=== PATIENT | female | born 1975 | race Caucasian/White ===

== ENCOUNTER 2016-10-04 09:37 | Emergency (ER) | payer BC, OTHER ==
[~2016-10-04] VITALS: Ht 165.1 cm; Wt 95.0 kg
[~2016-10-04 09:37] MED LIST: BENZ100 PO; DOXY100T PO; FLON0.053; MMW SSP
[2016-10-04 09:40] VITALS: BP 166/97; PULSE 75; RESP 16; TEMP 98.2; O2SAT 96
[2016-10-04] MEDS ORDERED: IBUPROFEN 600 MG TAB PO ONE (10:15)
--- NOTE | 2016-10-04 10:18 | PD ---
HPI Chief Complaint: Musculoskeletal Complaint Time Seen by Provider: 10:09 Travel History International Travel<30 days: No Contact w/Intl Traveler<30days: No Traveled to known affect area: No History of Present Illness HPI Patient is a 41-year-old female who presents to emergency room with complaints of right-sided wrist pain. Patient reports that she noticed this pain starting Thursday morning, reports that she is right hand dominant at baseline. Patient reports that she is unsure if she had any trauma to her hand/wrist as she usually gets up in the middle of the night. Reports "I may have banged my hand. " Reports that she has had increased pain with range of motion to her wrist, reports that she noticed increased swelling to her fingers as well. No redness or erythema noticed, no fevers or chills. PFSH Past Medical History Asthma: Yes Diabetes: Yes ("DIET CONTROLLED") Diminished Hearing: No Hypertension: Yes (QUIT MEDS 6 MOS AGO) Reproductive: Yes (MISCARRIAGES/ENDOMETRIOSIS/UTERINE ) ?: Not LMP: JAMIR : 4 Miscarriage: 3 Ectopic : Yes Past Surgical History Abdominal Surgery: Yes Appendectomy: Yes Section: Yes Cholecystectomy: Yes Gynecologic Surgery: Yes (SEPTUM FROM UTERUS REMOVED 03/2008 ENDOMETRIOSIS X4 LAST SURGERY 2005) Other Surgery: Yes (LUMPECTOMY 1997) Social History Alcohol Use: Yes ("VERY RARELY") Tobacco Use: No (QUIT ) Substance Use: No Allergies-Medications (Allergen,Severity, Reaction): Coded Allergies: Compazine (Verified Allergy, Severe, VISION LOSS, 10/04/16) Flagyl (Verified Allergy, Severe, MEMORY LOSS, 10/04/16) Levaquin (Verified Allergy, Severe, SWELLING, 10/04/16) Penicillin (Verified Allergy, Severe, SWELLING, 10/04/16) Reported Meds & Prescriptions Reported Meds & Active Scripts Active Ibuprofen 600 Mg Tab 600 Mg PO Q6H PRN Reported Metformin (Metformin HCl) 500 Mg Tab 500 Mg PO BIDPC With meals Hydrochlorothiazide 25 Mg Tab 25 Mg PO DAILY Flonase Nasal [place] (Fluticasone Nasal [place]) 50 Mcg/Act [place] 100 Mcg EACH NARE BID Claritin (Loratadine) 5 Mg Chew 5 Mg CHEW DAILY Lisinopril 20 Mg Tab 20 Mg PO DAILY Zofran (Ondansetron HCl) 4 Mg Tab 4 Mg PO Q6HR PRN Ranitidine (Ranitidine HCl) 150 Mg Tab 150 Mg PO DAILY Crestor (Rosuvastatin Calcium) 10 Mg Tab 10 Mg PO DAILY Review of Systems General / Constitutional: No: Fever Eyes: No: Visual changes HENT: No: Headaches Cardiovascular: No: Chest Pain or Discomfort Respiratory: No: Shortness of Breath Gastrointestinal: No: Abdominal Pain Genitourinary: No: Dysuria Musculoskeletal: Positive: Limited ROM, Pain (right wrist/hand pain) Skin: No Rash Neurologic: No: Weakness Psychiatric: No: Depression Endocrine: No: Polydipsia Hematologic/Lymphatic: No: Easy Bruising Physical Exam Narrative GENERAL: Well-nourished, well-developed patient. SKIN: Warm and dry. HEAD: Normocephalic. EYES: No scleral icterus. No injection or drainage. NECK: Supple, trachea midline. No JVD or lymphadenopathy. CARDIOVASCULAR: Regular rate and rhythm without murmurs, gallops, or rubs. RESPIRATORY: Breath sounds equal bilaterally. No accessory muscle use. GASTROINTESTINAL: Abdomen soft, non-tender, nondistended. MUSCULOSKELETAL: No cyanosis, or edema. Patient with pain with range of motion to right wrist, no obvious deformities, no cellulitis or erythema or edema. Pulses intact, neurovascularly intact, left upper extremity: normal exam BACK: Nontender without obvious deformity. No CVA tenderness. Data Data Last Documented VS Vital Signs Date Time Temp Pulse Resp B/P Pulse Ox O2 Delivery O2 Flow Rate FiO2 10/04/16 09:40 98.2 75 16 166/97 96 Orders Wrist, Complete ([id number]) (10/04/16 ) Hand, Complete ([id number]) (10/04/16 ) Ibuprofen (Motrin) (10/04/16 10:15) Ice/Cold Pack (10/04/16 10:12) Splint Or Brace Apply/Monitor (10/04/16 10:46) MDM Medical Decision Making Medical Screen Exam Complete: Yes Emergency Medical Condition: Yes Interpretation(s) Vital Signs Date Time Temp Pulse Resp B/P Pulse Ox O2 Delivery O2 Flow Rate FiO2 10/04/16 09:40 98.2 75 16 166/97 96 Differential Diagnosis wrist sprain/fracture, carpel tunnel syndrome Narrative Course Patient is a 41-year-old female who presents to emergency room with complaints of right-sided wrist pain. Reports onset on Thursday morning after she woke up from sleep, denies any obvious injuries or trauma to her wrist. Patient with no redness or erythema, patient with normal range of motion to wrist, she does have pain to her wrist with range of motion. X-rays of the wrist ordered to evaluate for possible fracture X-ray of the right wrist with no acute disease, x-ray of the right hand with no acute disease, patient follow-up with orthopedic surgery to return to emergency room as needed. Copies of patient's studies were given to her. Signs and symptoms of when to return to emergency room was reviewed with patient. Diagnosis Primary Impression: Wrist sprain Qualified Code: S63.501A - Wrist sprain, right, initial encounter Referrals: Gordo Lerma MD Patient Instructions: General Instructions Additional Instructions: Please follow-up with your primary care doctor in 2-3 days Please follow-up with orthopedic surgeon Please bring your x-ray reports to doctor's office for follow-up Return to ER if symptoms progress or worsen Med/Other Pt SpecificInfo: Prescription(s) given Scripts Ibuprofen 600 Mg [id number] Mg PO Q6H PRN (Pain/Inflammation) #40 TAB Ref 0 Prov:Payton Melissa DO 10/04/16 Disposition: 01 DISCHARGE HOME Condition: Stable Payton Melissa DO Oct 04, 2016 10:18
[2016-10-04] MEDS ORDERED: LISI-515 PO (10:24)
[2016-10-04] MEDS ORDERED: ROSU10 PO (10:24)
[2016-10-04] MEDS ORDERED: FLUT1SPR5 EACH NARE (10:24)
[2016-10-04] MEDS ORDERED: LORA1CHW CHEW (10:24)
[2016-10-04] MEDS ORDERED: ZOFR4TAB PO (10:24)
[2016-10-04] MEDS ORDERED: HYDR25TA5 PO (10:24)
[2016-10-04] MEDS ORDERED: METF500T PO (10:24)
[2016-10-04] MEDS ORDERED: RANI150T PO (10:24)
[2016-10-04] MEDS ORDERED: IBUP-232 PO (10:45)
--- NOTE | 2016-10-04 10:59 | RADHPO ---
EXAM DATE/TIME: 10/04/2016 10:21 [facility] COMPARISON: No previous studies available for comparison. INDICATIONS : Pain, no known injury MEDICAL HISTORY : Right wrist fracture SURGICAL HISTORY : Ligament repair right wrist ENCOUNTER: Initial ACUITY: 4 - 6 days PAIN SCORE: 4/10 LOCATION: Right hand FINDINGS: Three view examination of the right hand demonstrates no soft tissue swelling, dislocation, or fractu re. The carpal bones appear intact. The interphalangeal and metacarpophalangeal joints are intact. Bony mineralization is normal. CONCLUSION: Unremarkable examination of the right hand. Ricci Emmanuel MD on October 04, 2016 at 10:57 Board Certified Radiologist. This report was verified electronically.
--- NOTE | 2016-10-04 11:01 | RADHPO ---
EXAM DATE/TIME: 10/04/2016 10:25 [facility] COMPARISON: No previous studies available for comparison. INDICATIONS : Right wrist pain, no known injury MEDICAL HISTORY : Right wrist fracture SURGICAL HISTORY : Ligament repair right wrist ENCOUNTER: Initial ACUITY: 4 - 6 days PAIN SCORE: 4/10 LOCATION: Right wrist FINDINGS: Three view examination of the right wrist demonstrates no soft tissue swelling, dislocation, or fract ure. The carpal bones are in normal alignment. The joint spaces are maintained. Bony mineralizatio n is normal. CONCLUSION: No acute disease. Ricci Emmanuel MD on October 04, 2016 at 10:59 Board Certified Radiologist. This report was verified electronically.
== END 2016-10-04 11:36 | disposition home or self-care (01) ==
LOC: PHED 09:37
DX: S63.501A Unspecified sprain of right wrist, initial encounter (principal); X58.XXXA Exposure to other specified factors, initial encounter
CPT/HCPCS: 73110; 73130; 99283; L3908

== ENCOUNTER 2017-03-04 16:52 | Emergency (ER) | payer BC ==
[~2017-03-04] VITALS: Ht 165.1 cm; Wt 96.0 kg
[~2017-03-04 16:52] MED LIST changes: -BENZ100 PO; -DOXY100T PO; -FLON0.053; +FLUT1SPR5 EACH NARE; +HYDR25TA5 PO; +IBUP-232 PO; +LISI-515 PO; +LORA1CHW CHEW; +METF500T PO; -MMW SSP; +RANI150T PO; +ROSU10 PO; +ZOFR4TAB PO
[2017-03-04 17:00] VITALS: BP 186/81; PULSE 76; RESP 20; TEMP 98.1; O2SAT 95
[2017-03-04] MEDS ORDERED: OMEP20TA PO (17:27)
[2017-03-04] MEDS ORDERED: METO100T PO (17:27)
--- NOTE | 2017-03-04 18:05 | PD ---
HPI Chief Complaint: Laceration/Skin Injury Time Seen by Provider: 17:38 Travel History International Travel<30 days: No Contact w/Intl Traveler<30days: No Traveled to known affect area: No History of Present Illness HPI 41-year-old female presents emergency department for evaluation of left thumb nail injury. Patient reports her fingernail was forcefully extended causing the nail to lift away from the nailbed. She reports pain at the site. There is mild bleeding. She reports normal sensation and full range of motion of the thumb. Tetanus immunization is unknown. PFS Past Medical History Asthma: Yes High Cholesterol: Yes Diabetes: Yes Patient Takes Glucophage: No Diminished Hearing: No Hypertension: Yes Reproductive: Yes (MISCARRIAGES/ENDOMETRIOSIS/UTERINE ) Tetanus Vaccination: Unknown Influenza Vaccination: Yes ?: Not LMP: MENOPAUSE : 4 Miscarriage: 3 Ectopic : Yes Past Surgical History Abdominal Surgery: Yes Appendectomy: Yes Section: Yes Cholecystectomy: Yes Gynecologic Surgery: Yes (SEPTUM FROM UTERUS REMOVED 03/2008 ENDOMETRIOSIS X4 LAST SURGERY 2005) Other Surgery: Yes (LUMPECTOMY 1997) Social History Alcohol Use: Yes ("VERY RARELY") Tobacco Use: No (QUIT ) Substance Use: No Allergies-Medications (Allergen,Severity, Reaction): Coded Allergies: Compazine (Verified Allergy, Severe, VISION LOSS, 10/04/16) Flagyl (Verified Allergy, Severe, MEMORY LOSS, 10/04/16) Levaquin (Verified Allergy, Severe, SWELLING, 10/04/16) Penicillin (Verified Allergy, Severe, SWELLING, 10/04/16) Reported Meds & Prescriptions Reported Meds & Active Scripts Active Reported Omeprazole 20 Mg Tab 20 Mg PO DAILY Metoprolol Tartrate 100 Mg Tab 100 Mg PO BID Review of Systems Except as stated in HPI: all other systems reviewed are Neg General / Constitutional: No: Fever Eyes: No: Visual changes HENT: No: Headaches Cardiovascular: No: Chest Pain or Discomfort Respiratory: No: Shortness of Breath Gastrointestinal: No: Abdominal Pain Genitourinary: No: Dysuria Physical Exam Narrative GENERAL: Well-nourished, well-developed patient. SKIN: Focused skin assessment warm/dry. HEAD: Normocephalic. EYES: No scleral icterus. No injection or drainage. NECK: Supple, trachea midline. No JVD or lymphadenopathy. CARDIOVASCULAR: Regular rate and rhythm without murmurs, gallops, or rubs. RESPIRATORY: Breath sounds equal bilaterally. No accessory muscle use. GASTROINTESTINAL: Abdomen soft, non-tender, nondistended. MUSCULOSKELETAL: No cyanosis, or edema. Left hand: Subtle thumb nail avulsion at the distal aspect. The nail itself is still well adhered to the bed. Data Data Last Documented VS Vital Signs Date Time Temp Pulse Resp B/P Pulse Ox O2 Delivery O2 Flow Rate FiO2 03/04/17 17:00 98.1 76 20 186/81 95 MDM Medical Decision Making Medical Screen Exam Complete: Yes Emergency Medical Condition: Yes Differential Diagnosis Nail avulsion, contusion, finger laceration Narrative Course 41-year-old female with chief complaint of left thumb pain. Patient reports that here left thumb nail was forcibly extended causing it to slightly lift up. On physical exam she has a subtle fingernail avulsion at the distal aspect. The nail is still well adhered. The area was soaked and dressed with a sterile dressing and thumb splint applied. Diagnosis Primary Impression: Nail avulsion Qualified Code: S61.309A - Avulsion of nail plate, initial encounter Referrals: Primary Care Physician Additional Instructions: Watch the area daily with soap and water. With a thumb splint as directed. Follow-up with her primary care doctor. Return to the emergency department if he developed new or worsening symptoms. Scripts Sulfamethoxazole-Trimethoprim (Bactrim DS)800-160 Mg Tab1 Tab PO BID #14 TAB Prov:Leta Polk 03/04/17 Disposition: 01 DISCHARGE HOME Condition: Stable Leta Polk Mar 04, 2017 18:05
[2017-03-04] MEDS ORDERED: BACT800T5 PO (18:15)
[2017-03-04] MEDS ORDERED: TETANUS/DIPHTHERIA TOXOID ADULT 0.5 ML VIAL IM ONE (18:45)
== END 2017-03-04 19:23 | disposition home or self-care (01) ==
LOC: PHED 16:52 → PHEFT 19:23
DX: S61.309A Unspecified open wound of unspecified finger with damage to nail, initial encounter (principal); E11.9 Type 2 diabetes mellitus without complications; I10 Essential (primary) hypertension; E78.00 Pure hypercholesterolemia, unspecified; Z23 Encounter for immunization; Z87.09 Personal history of other diseases of the respiratory system; X58.XXXA Exposure to other specified factors, initial encounter
CPT/HCPCS: 90471; 90714

== ENCOUNTER 2017-06-10 19:24 | Observation (INO) | payer BC ==
[~2017-06-10] VITALS: Ht 165.1 cm; Wt 98.0 kg
[~2017-06-10 19:24] MED LIST changes: +BACT800T5 PO; -FLUT1SPR5 EACH NARE; -HYDR25TA5 PO; -IBUP-232 PO; -LISI-515 PO; -LORA1CHW CHEW; -METF500T PO; +METO100T PO; +OMEP20TA93 PO; -RANI150T PO; -ROSU10 PO; -ZOFR4TAB PO
[2017-06-10 19:27] VITALS: BP 145/92; PULSE 86; RESP 20; TEMP 98.8; O2SAT 98
[2017-06-10] MEDS ORDERED: METF1000 PO (19:47)
[2017-06-10] MEDS ORDERED: EDAR80TA PO (19:47)
[2017-06-10] MEDS ORDERED: LORA1CHW2 CHEW (19:47)
[2017-06-10] MEDS ORDERED: FLUT1SPR5 EACH NARE (19:47)
[2017-06-10] MEDS ORDERED: CHOL1CAP2 PO (19:47)
[2017-06-10] MEDS ORDERED: ROSU20 PO (19:47)
[2017-06-10] MEDS ORDERED: DULA10IN SQ (19:47)
[2017-06-10] MEDS ORDERED: CARV12.52 PO (19:47)
--- NOTE | 2017-06-10 20:20 | PD ---
HPI Chief Complaint: Chest Pain Time Seen by Provider: 19:40 Travel History International Travel<30 days: No Contact w/Intl Traveler<30days: No Traveled to known affect area: No History of Present Illness HPI Patient is a 41-year-old female with diabetes and hypertension she is moderately obese today while at work sitting at her desk she developed substernal chest pain that radiated up to her left jaw lasting about 20 minutes. She did not take any aspirin she did not take any Tums C took nothing to relieve the symptoms. Pain lasted until she arrived in the ER. In the ER she is mostly pain-free. She has not seen another doctor for this illness. Past history again is diabetes hypertension she has history of GERD on omeprazole chief complaint is substernal chest pain radiating to the left jaw. Denies ever having a stress test. 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 [facility] Past Medical History Asthma: Yes Cardiovascular Problems: Yes (HTN) High Cholesterol: Yes Diabetes: Yes Patient Takes Glucophage: No Diminished Hearing: No Hypertension: Yes Medical other: Yes (METABOLIC SYNDROME) Reproductive: Yes (MISCARRIAGES/ENDOMETRIOSIS/UTERINE ) Tetanus Vaccination: < 5 Years Influenza Vaccination: No ?: Not LMP: irreg : 4 Miscarriage: 3 Ectopic : Yes Past Surgical History Abdominal Surgery: Yes Appendectomy: Yes Section: Yes Cholecystectomy: Yes Gynecologic Surgery: Yes (SEPTUM FROM UTERUS REMOVED 03/2008 ENDOMETRIOSIS X4 LAST SURGERY 2005) Other Surgery: Yes (LUMPECTOMY 1997, LEFT BREAST BIOPSY, CERVICAL BIOPSY) Social History Alcohol Use: No Tobacco Use: No (QUIT ) Substance Use: No Allergies-Medications (Allergen,Severity, Reaction): Coded Allergies: levofloxacin (Unverified Allergy, Severe, SWELLING, 06/10/17) metronidazole (Unverified Allergy, Severe, MEMORY LOSS, 06/10/17) penicillin G (Unverified Allergy, Severe, SWELLING, 06/10/17) prochlorperazine (Unverified Allergy, Severe, VISION LOSS, 06/10/17) Reported Meds & Prescriptions Reported Meds & Active Scripts Active Reported Flonase Nasal [place] (Fluticasone Nasal [place]) 50 Mcg/Act [place] 50 Mcg EACH NARE BID Claritin (Loratadine) 5 Mg Chew 5 Mg CHEW DAILY Trulicity Inj (Dulaglutide Inj) 0.75 Mg/0.5 Ml Pen 0.75 Mg SQ Q7D Edarbi (Azilsartan) 80 Mg Tab 80 Mg PO DAILY Fenofibric Acid Dr (Choline Fenofibrate DR) 135 mg Capdr 135 Mg PO DAILY Carvedilol 12.5 Mg Tab 12.5 Mg PO BID Metformin (Metformin HCl) 1,000 Mg Tab 1,000 Mg PO BIDPC Crestor (Rosuvastatin Calcium) 20 Mg Tab 20 Mg PO DAILY Omeprazole 20 Mg Tab 20 Mg PO DAILY Review of Systems Except as stated in HPI: all other systems reviewed are Neg HENT: No: Headaches Cardiovascular: Positive: Chest Pain or Discomfort (with radiation to the left neck) Gastrointestinal: Positive: Nausea, No: Vomiting, Diarrhea, Abdominal Pain Physical Exam Narrative GENERAL: Nontoxic-appearing in no distress, blood pressure is 160 systolic SKIN: Warm and dry. HEAD: Atraumatic. Normocephalic. EYES: Pupils equal and round. No scleral icterus. No injection or drainage. ENT: No nasal bleeding or discharge. Mucous membranes pink and moist. NECK: Trachea midline. No JVD. CARDIOVASCULAR: Regular rate and rhythm. RESPIRATORY: No accessory muscle use. Clear to auscultation. Breath sounds equal bilaterally. GASTROINTESTINAL: Abdomen soft, non-tender, nondistended. Hepatic and splenic margins not palpable. Palpation of her epigastrium and percussion does not elicit the pain she came in for MUSCULOSKELETAL: Extremities without clubbing, cyanosis, or edema. No obvious deformities. Back no spinous process pain and palpation of her upper left back does not elicit the pain she was describing NEUROLOGICAL: Awake and alert. No obvious cranial nerve deficits. Motor grossly within normal limits. Five out of 5 muscle strength in the arms and legs. Normal speech. PSYCHIATRIC: Appropriate mood and affect; insight and judgment normal. Data Data Last Documented VS Vital Signs Date Time Temp Pulse Resp B/P (MAP) Pulse Ox O2 Delivery O2 Flow Rate FiO2 06/10/17 19:27 98.8 86 20 145/92 (109) 98 Room Air Orders Orders Pantoprazole Inj (Protonix Inj) (06/10/17 20:30) Aspirin Chew (Aspirin Chew) (06/10/17 20:30) Sodium Chlorid 0.9% 500 Ml Inj (Ns 500 M (06/10/17 20:30) Troponin I (06/10/17 21:02) Complete Blood Count With Diff (06/10/17 21:02) Comprehensive Metabolic Panel (06/10/17 21:02) Electrocardiogram (06/10/17 19:42) Admit Order (Ed Use Only) (06/10/17 22:05) Activity Bed Rest With Brp (06/10/17 22:05) Vital Signs (Adult) Q4H (06/10/17 22:05) Cardiac Rhythm .As Directed (06/10/17 22:) Notify Dr: Other .PRN (06/10/17 22:05) Notify DrMadhav Parameters (06/10/17 22:05) Resp Oxygen Nasal Cannula (06/10/17 ) Ckmb (Isoenzyme) Profile (06/10/17 22:05) Ckmb (Isoenzyme) Profile (06/11/17 01:05) Troponin I (06/10/17 22:05) Troponin I (06/11/17 01:05) Electrocardiogram (06/10/17 22:05) Electrocardiogram (06/11/17 01:05) ^ Obtain (06/10/17 22:05) Sodium Chloride 0.9% Flush (Ns Flush) (06/10/17 22:15) Sodium Chloride 0.9% Flush (Ns Flush) (06/10/17 22:15) Customs Director / Telemetry AUSTYN.Q8H (06/10/17 22:05) Labs Laboratory Tests Test 06/10/17 21:05 White Blood Count 6.1 TH/MM3 Red Blood Count 4.36 MIL/MM3 Hemoglobin 12.9 GM/DL Hematocrit 36.7 % Mean Corpuscular Volume 84.1 FL Mean Corpuscular Hemoglobin 29.6 PG Mean Corpuscular Hemoglobin Concent 35.2 % Red Cell Distribution Width 14.4 % Platelet Count 246 TH/MM3 Mean Platelet Volume 8.3 FL Neutrophils (%) (Auto) 47.0 % Lymphocytes (%) (Auto) 41.1 % Monocytes (%) (Auto) 8.6 % Eosinophils (%) (Auto) 2.0 % Basophils (%) (Auto) 1.3 % Neutrophils # (Auto) 2.9 TH/MM3 Lymphocytes # (Auto) 2.5 TH/MM3 Monocytes # (Auto) 0.5 TH/MM3 Eosinophils # (Auto) 0.1 TH/MM3 Basophils # (Auto) 0.1 TH/MM3 CBC Comment DIFF FINAL Differential Comment Blood Urea Nitrogen 13 MG/DL Creatinine 0.76 MG/DL Random Glucose 141 MG/DL Total Protein 7.8 GM/DL Albumin 3.7 GM/DL Calcium Level 8.7 MG/DL Alkaline Phosphatase 117 U/L Aspartate Amino Transf (AST/SGOT) 60 U/L Alanine Aminotransferase (ALT/SGPT) 63 U/L Total Bilirubin 0.3 MG/DL Sodium Level 133 MEQ/L Potassium Level 3.6 MEQ/L Chloride Level 100 MEQ/L Carbon Dioxide Level 24.6 MEQ/L Anion Gap 8 MEQ/L Estimat Glomerular Filtration Rate 83 ML/MIN Troponin I LESS THAN 0.02 NG/ML MDM Medical Decision Making Medical Screen Exam Complete: Yes Emergency Medical Condition: Yes Interpretation(s) EKG Normal sinus rhythm rate within normal limits Differential Diagnosis Patient has chest pain which could be gastritis versus esophagitis versus GERD versus ischemic cardiac chest pain versus pulmonary contusion versus pneumonia gastritis higher on the differential but risk factors of diabetes and hypertension increase the risk of it being ischemic cardiac Narrative Course EKG is normal sinus rhythm troponin is less than 0.01 all labs are negative EKG is negative patient is given Protonix and aspirin chewable 162 mg and I give her nitro paste and admitted her to chest pain center for serial troponins and possible stress test diabetes and hypertension in her size and obesity make her risk factors enough to warrant further Diagnosis Primary Impression: Chest pain Qualified Codes: R07.9 - Chest pain, unspecified Admitting Information Admitting Physician Requests: Admit Anthony Salazar MD Jun 10, 2017 20:20
[2017-06-10] MEDS ORDERED: ASPIRIN 81 MG CHEW TAB CHEW ONE (20:30)
[2017-06-10] MEDS ORDERED: SODIUM CHLORID 0.9% 500 ML INJ 500 ML IV ONE (20:30)
[2017-06-10] MEDS ORDERED: PANTOPRAZOLE SODIUM 40 MG VIAL IV PUSH ONE (20:30)
[2017-06-10 21:12] LABS: AUTOMATED NEUTROPHIL # 2.9 TH/MM3 (1.8-7.7); BASOPHIL # 0.1 TH/MM3 (0-0.2); BASOPHIL % 1.3 % (0.0-2.0); EOSINOPHIL # 0.1 TH/MM3 (0-0.4); HEMATOCRIT 36.7 % (35.0-46.0); HEMO FLAGS DIFF FINAL; LYMPH % 41.1 % (9.0-44.0); LYMPHOCYTE # 2.5 TH/MM3 (1.0-4.8); MEAN CELL VOLUME 84.1 FL (80.0-100.0); MEAN CORPUSCULAR HEMOGLOBIN 29.6 PG (27.0-34.0); MEAN CORPUSCULAR HGB CONC 35.2 % (32.0-36.0); MONO % 8.6 % (0.0-8.0); PLATELET COUNT 246 TH/MM3 (150-450); RED BLOOD COUNT 4.36 MIL/MM3 (4.00-5.30); RED CELL DISTRIBUTION WIDTH 14.4 % (11.6-17.2); WHITE BLOOD COUNT 6.1 TH/MM3 (4.0-11.0)
[2017-06-10 21:32] LABS: ALT (GPT) 63 U/L (10-53)
[2017-06-10 21:36] LABS: ALKALINE PHOSPHATASE 117 U/L (45-117); TOTAL BILIRUBIN ADULT 0.3 MG/DL (0.2-1.0)
[2017-06-10 21:37] LABS: ANION GAP 8 MEQ/L (5-15); AST (GOT) 60 U/L (15-37); BICARBONATE 24.6 MEQ/L (21.0-32.0); CHLORIDE 100 MEQ/L (98-107); GLOMERULAR FILTRATION RATE 83 ML/MIN (>89); POTASSIUM 3.6 MEQ/L (3.5-5.1); SODIUM (NA) 133 MEQ/L (136-145)
[2017-06-10 21:40] LABS: BLOOD UREA NITROGEN 13 MG/DL (7-18)
[2017-06-10] MEDS ORDERED: SODIUM CHLORIDE 0.9% FLUSH 10 ML FLUSH IV FLUSH PRN (22:15)
[2017-06-10] MEDS: SODIUM CHLORIDE 0.9% FLUSH 10 ML FLUSH IV FLUSH SCH (22:22)
[2017-06-10] MEDS ORDERED: NITROGLYCERIN 2% OINT 1 GM PACKET TOPICAL ONE (22:45)
[2017-06-10 23:07] VITALS: BP 158/62; PULSE 77; RESP 18; O2SAT 99
[2017-06-10 23:32] VITALS: BP 137/74; PULSE 82; RESP 19; TEMP 98; O2SAT 96
[2017-06-11] VITALS (9 sets, daily range): BP systolic 128–193; BP diastolic 67–85; PULSE 69–84; RESP 18–20; TEMP 97.7–98.3; O2SAT 95–99
[2017-06-11 00:53] LABS: CREATINE KINASE 68 U/L (26-192)
[2017-06-11 04:29] LABS: CREATINE KINASE 65 U/L (26-192)
[2017-06-11] MEDS: SODIUM CHLORIDE 0.9% FLUSH 10 ML FLUSH IV FLUSH SCH (08:52)
--- NOTE | 2017-06-11 11:42 | RADRPT ---
EXAM DATE/TIME: 06/11/2017 10:59 [facility] COMPARISON: No previous studies available for comparison. INDICATIONS : Chest pain. MEDICAL HISTORY : high blood pressure. SURGICAL HISTORY : None. ENCOUNTER: Initial ACUITY: 1 day PAIN SCORE: 0/10 LOCATION: Bilateral chest FINDINGS: PA and lateral views of the chest demonstrate the lungs to be symmetrically aerated without evidence of mass, infiltrate or effusion. The cardiomediastinal contours are unremarkable. Osseous structure s are intact. CONCLUSION: Normal examination. Jeremiah Milligan Jr., MD on June 11, 2017 at 11:40 Board Certified Radiologist. This report was verified electronically.
[2017-06-11] MEDS ORDERED: KETOROLAC TROMETHAMINE 30 MG/ML (IVP) VIAL IVP ONE (12:15)
--- NOTE | 2017-06-11 12:19 | HHI.HP ---
HPI Primary Care Physician MARY Connelly Chief Complaint Chest pain History of Present Illness This is a 41-year-old female that presents to ED via private vehicle with a complaint of chest discomfort. She states that yesterday afternoon while she was sitting at her desk at work she developed a squeezing/pressure in the center of her chest. Lasted 3 hours. Found nothing to worsen or improve the symptoms. Denies shortness of breath, nausea, or diaphoresis. Patient states she recently began to see Dr. Hemanth Chen of cardiology secondary to hypertension. States she had a echo in his office and believes that was okay and states that he was talking about doing a stress test. She had an appointment with him yesterday but had to reschedule it. Denies recent illness. Denies fevers or chills. Denies . Review of Systems General: Patient denies fevers, chills recent, and recent travel HEENT: Patient denies headache, sore throat, difficulty swallowing. Cardiovascular: Has the chest discomfort as mentioned above. Denies sensation of heart beating rapidly or irregularly. No syncope. Denies diaphoresis. Respiratory: Denies shortness of breath or inspirational chest discomfort. Denies coughing wheezing or hemoptysis. GI: Patient denies nausea, vomiting, diarrhea, abdominal pain, bloody stools. Musculoskeletal: Patient denies joint pain or edema. Denies calf pain or edema. Neurovascular: Patient denies numbness, tingling, weakness in extremities. Denies headache. Endocrine: Denies polyuria and polydipsia. Hematologic: Denies easy bruising. Skin: Denies rash or itching. Past Family Social History Allergies: Coded Allergies: levofloxacin (Unverified Allergy, Severe, SWELLING, 06/10/17) metronidazole (Unverified Allergy, Severe, MEMORY LOSS, 06/10/17) penicillin G (Unverified Allergy, Severe, SWELLING, 06/10/17) prochlorperazine (Unverified Allergy, Severe, VISION LOSS, 06/10/17) Past Medical History Hypertension, hyperlipidemia, diabetes. Denies known CAD. Past Surgical History Noncontributory. Reported Medications Reported Meds & Active Scripts Active Reported Flonase Nasal [place] (Fluticasone Nasal [place]) 50 Mcg/Act [place] 50 Mcg EACH NARE BID Claritin (Loratadine) 5 Mg Chew 5 Mg CHEW DAILY Trulicity Inj (Dulaglutide Inj) 0.75 Mg/0.5 Ml Pen 0.75 Mg SQ Q7D Edarbi (Azilsartan) 80 Mg Tab 80 Mg PO DAILY Fenofibric Acid Dr (Choline Fenofibrate DR) 135 mg Capdr 135 Mg PO DAILY Carvedilol 12.5 Mg Tab 12.5 Mg PO BID Metformin (Metformin HCl) 1,000 Mg Tab 1,000 Mg PO BIDPC Crestor (Rosuvastatin Calcium) 20 Mg Tab 20 Mg PO DAILY Omeprazole 20 Mg Tab 20 Mg PO DAILY Active Ordered Medications Current Medications Medications (Trade) Dose Ordered Sig/Shanda Route Start Time Stop Time Status Last Admin (NS Flush) 2 ml UNSCH PRN IV FLUSH 06/10/17 22:15 (NS Flush) 2 ml BID IV FLUSH 06/10/17 22:15 06/11/17 08:52 Family History No family history of CAD. Social History Quit smoking 1997. Prior that she smoked about 1 pack of cigarettes per week for 10 years. Denies alcohol or illicit drugs. She is . Physical Exam Vital Signs Vital Signs Date Time Temp Pulse Resp B/P (MAP) Pulse Ox O2 Delivery O2 Flow Rate FiO2 06/11/17 11:15 98.3 79 18 143/85 (104) 97 06/11/17 08:00 76 06/11/17 07:35 98.2 80 18 139/83 (101) 96 06/11/17 03:25 98.0 76 18 134/67 (89) 95 06/11/17 00:34 84 06/10/17 23:32 98.0 82 19 137/74 (95) 96 06/10/17 23:20 06/10/17 23:07 77 18 158/62 (94) 99 Room Air 06/10/17 19:27 98.8 86 20 145/92 (109) 98 Room Air Physical Exam GENERAL: This is a well-nourished, well-developed patient, in no apparent distress. Patient speaks in clear complete sentences. Patient is pleasant. HEENT: Head is atraumatic and normocephalic. Neck is supple without lymphadenopathy and trachea is midline. No JVD or carotid bruits. CARDIOVASCULAR: Grade 2 systolic murmur right sternal border. Regular rate and rhythm without gallops, or rubs. RESPIRATORY: Clear to auscultation. Breath sounds equal bilaterally. No wheezes , rales, or rhonchi. Chest wall is tender along the sternum reproducing the discomfort she was having. No use of accessory muscles. GASTROINTESTINAL: Abdomen is nontender, nondistended. Abdomen soft. No obvious pulsatile mass or bruit. No CVA tenderness. Strong femoral pulses bilaterally. Normal bowel sounds in all quadrants. MUSCULOSKELETAL: Patient is moving upper and lower extremities freely. No calf tenderness or edema, no Homans sign. Strong pulses in upper and lower extremities. NEUROLOGICAL: Patient is alert and oriented. Cranial nerves 2-12 are grossly intact. No focal deficits and speech is clear. SKIN: No rash and turgor is normal. Laboratory Laboratory Tests Test 06/10/17 21:05 06/10/17 23:55 06/11/17 03:00 White Blood Count 6.1 Red Blood Count 4.36 Hemoglobin 12.9 Hematocrit 36.7 Mean Corpuscular Volume 84.1 Mean Corpuscular Hemoglobin 29.6 Mean Corpuscular Hemoglobin Concent 35.2 Red Cell Distribution Width 14.4 Platelet Count 246 Mean Platelet Volume 8.3 Neutrophils (%) (Auto) 47.0 Lymphocytes (%) (Auto) 41.1 Monocytes (%) (Auto) 8.6 Eosinophils (%) (Auto) 2.0 Basophils (%) (Auto) 1.3 Neutrophils # (Auto) 2.9 Lymphocytes # (Auto) 2.5 Monocytes # (Auto) 0.5 Eosinophils # (Auto) 0.1 Basophils # (Auto) 0.1 CBC Comment DIFF FINAL Differential Comment Blood Urea Nitrogen 13 Creatinine 0.76 Random Glucose 141 Total Protein 7.8 Albumin 3.7 Calcium Level 8.7 Alkaline Phosphatase 117 Aspartate Amino Transf (AST/SGOT) 60 Alanine Aminotransferase (ALT/SGPT) 63 Total Bilirubin 0.3 Sodium Level 133 Potassium Level 3.6 Chloride Level 100 Carbon Dioxide Level 24.6 Anion Gap 8 Estimat Glomerular Filtration Rate 83 Troponin I LESS THAN 0.02 LESS THAN 0.02 LESS THAN 0.02 Total Creatine Kinase 68 65 Result Diagram: 06/10/17210406/10/172104 Imaging Last 48 hours Impressions Chest X-Ray 06/11/17 1044 Signed Impressions: Service Date/Time: May 10:59 - CONCLUSION: Normal examination. Jeremiah Milligan Jr., MD Course EKGs have sinus rhythm without significant ST segment depressions or elevations. Caprini VTE Risk Assessment Caprini VTE Risk Assessment: No/Low Risk (score <= 1) Caprini Risk Assessment Model Point Value = 1 Point Value = 2 Point Value = 3 Point Value = 5 Age 41-60 Minor surgery BMI > 25 kg/m2 Swollen legs Varicose veins or History of unexplained or recurrent spontaneous Oral contraceptives or hormone replacement Sepsis (< 1 month) Serious lung disease, including pneumonia (< 1 month) Abnormal pulmonary function Acute myocardial infarction Congestive heart failure (< 1 month) History of inflammatory bowel disease Medical patient at bed rest Age 61-74 Arthroscopic surgery Major open surgery (> 45 min) Laparoscopic surgery (> 45 min) Malignancy Confined to bed (> 72 hours) Immobilizing plaster cast Central venous access Age >= 75 History of VTE Family history of VTE Factor V Leiden Prothrombin [id number] Lupus anticoagulant Anticardiolipin antibodies Elevated serum homocysteine Heparin-induced thrombocytopenia Other congenital or acquired thrombophilia Stroke (< 1 month) Elective arthroplasty Hip, pelvis, or leg fracture Acute spinal cord injury (< 1 month) Prophylaxis Regimen Total Risk Factor Score Risk Level Prophylaxis Regimen 0-1 Low Early ambulation 2 Moderate Order ONE of the following: *Sequential Compression Device (SCD) *Heparin 5000 units SQ BID 3-4 Higher Order ONE of the following medications: *Heparin 5000 units SQ TID *Enoxaparin/Lovenox 40 mg SQ daily (WT < 150 kg, CrCl > 30 mL/min) *Enoxaparin/Lovenox 30 mg SQ daily (WT < 150 kg, CrCl > 10-29 mL/min) *Enoxaparin/Lovenox 30 mg SQ BID (WT < 150 kg, CrCl > 30 mL/min) AND/OR *Sequential Compression Device (SCD) 5 or more Highest Order ONE of the following medications: *Heparin 5000 units SQ TID (Preferred with Epidurals) *Enoxaparin/Lovenox 40 mg SQ daily (WT < 150 kg, CrCl > 30 mL/min) *Enoxaparin/Lovenox 30 mg SQ daily (WT < 150 kg, CrCl > 10-29 mL/min) *Enoxaparin/Lovenox 30 mg SQ BID (WT < 150 kg, CrCl > 30 mL/min) AND *Sequential Compression Device (SCD) Assessment and Plan Assessment and Plan * Chest pain: Patient has had serial cardiac enzymes and EKGs for ruling out purposes. She will be seen by Dr. Villegas cardiology and the chest pain center. 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 Hemanth Chen to discuss likely doing Zeus protocol ETT. Likely patient will have the stress test and be discharged nonischemic with instructions to follow-up with PCP and straight truck driver. She'll be given Toradol dose 1. * Hypertension: Continue current medication. * Hyperlipidemia: Continue current medication. * Diabetes: Patient resume her medication discharge. She should follow diabetic diet. She'll be on sliding scale insulin coverage while in the chest pain center. Patient is stable at this time. She is agreeable to this plan. Baltazar Chaney Jun 11, 2017 12:19
[2017-06-11] MEDS ORDERED: GLUCAGON 1 MG/ML VIAL OTHER PRN (12:30)
[2017-06-11] MEDS ORDERED: DEXTROSE 50% IN WATER 50 ML VIAL(D50) IV PUSH PRN (12:30)
[2017-06-11] MEDS ORDERED: FENOFIBRATE 145 MG TAB PO SCH (13:45)
[2017-06-11] MEDS ORDERED: PANTOPRAZOLE SOD 20 MG DELAYED RELEASE TAB PO SCH (13:45)
[2017-06-11] MEDS ORDERED: ATORVASTATIN 40 MG TAB PO SCH (13:45)
[2017-06-11] MEDS ORDERED: LOSARTAN 50 MG TAB PO SCH (13:45)
[2017-06-11] MEDS ORDERED: CARVEDILOL 12.5 MG TAB PO ONE (14:00)
--- NOTE | 2017-06-11 14:21 | EKG ---
Date Performed: 06/11/2017 Time Performed: 03:23:01 PTAGE: 41 years EKG: Sinus rhythm WITH SINUS ARRHYTHMIA NORMAL ECG PREVIOUS TRACING : 06/11/2017 00.18 Since previous tracing, no significant change noted DOCTOR: Chico Villegas Interpretating Date/Time 06/11/2017 14:20:43
--- NOTE | 2017-06-11 14:26 | EKG ---
Date Performed: 06/11/2017 Time Performed: 00:18:07 PTAGE: 41 years EKG: Sinus rhythm NORMAL ECG PREVIOUS TRACING : 06/10/2017 19.42 Since previous tracing, no significant change noted DOCTOR: Chico Villegas Interpretating Date/Time 06/11/2017 14:24:44
[2017-06-11] MEDS ORDERED: REGADENOSON INJ 0.4 MG/5 ML SYR ONE (14:38)
--- NOTE | 2017-06-11 14:41 | EKG ---
Date Performed: 06/10/2017 Time Performed: 19:42:23 PTAGE: 41 years EKG: Sinus rhythm NORMAL ECG NO PREVIOUS TRACING Since previous tracing, no significant change noted DOCTOR: Chico Villegas Interpretating Date/Time 06/11/2017 14:41:14
--- NOTE | 2017-06-11 14:51 | TR ---
Date Performed: 06/11/2017 Time Performed: 13:23:12 DOCTOR: Chico Villegas DRUG LIST: CLINICAL HISTORY: REASON FOR TEST: REASON FOR ENDING: OBSERVATION: CONCLUSION: ATTEMPTED DIANE PROTOCOL ETT. STOPPED PRIOR TO REACHING GOAL HR SECONDARYY TO FEELIN G DIZZY AND HOT. NO CP OR SOB.Maximum XI=654 % Max HR Achieved=75.0% Maximum FJ=351/80 Total Exercise Time=3:54 COMMENTS: submaximal ETT ,negative for ischemia,suggest arjun nuclear test.
--- NOTE | 2017-06-11 16:48 | RADRPT ---
EXAM DATE/TIME: 06/11/2017 14:55 [facility] COMPARISON: No previous studies available for comparison. INDICATIONS : Midsternal chest pain. Angina. DOSE: 25.9 mCi Tc99m Myoview at stress. 8.3 mCi Tc99m Myoview at rest. 0.4 mg Lexiscan STRESS SYMPTOMS: Shortness of breath, headache, chest pressure, chest burning. EJECTION FRACTION: 69% MEDICAL HISTORY : Hypertension. Asthma. SURGICAL HISTORY : Left lumpectomy. ENCOUNTER: Initial ACUITY: 1 day PAIN SCALE: 4/10 LOCATION: Bilateral chest TECHNIQUE: The patient underwent pharmacologic stress with infusion of prescribed dose. Continuous ECG tracing was monitored during stress. Gated SPECT imaging was performed after stress and conventional SPECT i maging was performed at rest. The examination was performed on a SPECT/CT scanner, both attenuation and non-corrected datasets were reviewed. FINDINGS: DISTRIBUTION: The maximum perfused segment at stress is in the anterolateral wall. PERFUSION STUDY: The pattern of perfusion at stress is within normal limits. GATED STUDY: There is intact wall motion and thickening without hypokinetic or dyskinetic segments. CONCLUSION: 1. No reversible perfusion defect to indicate stress-induced myocardial ischemia. RISK CATEGORY: Low (<1% Annual Mortality Rate) Abdoulaye Goetz MD on June 11, 2017 at 16:46 Board Certified Radiologist. This report was verified electronically.
[2017-06-11] MEDS ORDERED: INSULIN NovoLIN REGULAR SUPPLEMENTAL SCALE SQ SCH (17:00)
--- NOTE | 2017-06-11 17:21 | HHI.DCPOC ---
Discharge Care Plan Diagnosis: (1) Chest pain (2) Hypertension (3) Hyperlipidemia (4) DM (diabetes mellitus) Goals to Promote Your Health * To prevent worsening of your condition and complications * To maintain your health at the optimal level Directions to Meet Your Goals Take your medications as prescribed Follow your dietary instruction Follow activity as directed Keep your appointments as scheduled Take your immunizations and boosters as scheduled If your symptoms worsen call your PCP, if no PCP go to Urgent Care Center or Emergency Room Smoking is Dangerous to Your Health. Avoid second hand smoke Call the 24-hour hour crisis hotline for domestic abuse at Baltazar Chaney Jun 11, 2017 17:21
--- NOTE | 2017-06-11 17:51 | TR ---
Date Performed: 06/11/2017 Time Performed: 15:17:13 DOCTOR: Chico Villegas DRUG LIST: CLINICAL HISTORY: ANGINA REASON FOR TEST: REASON FOR ENDING: OBSERVATION: CONCLUSION: Lexiscan stress test was performed under standard four minute protocol. Radionuclid e was injected one minute prior to ending the test. No electrocardiographic abormalities were present to suggest ischemia. Nuclear imaging and interpretation are pending. COMMENTS:
[2017-06-11] MEDS ORDERED: CARVEDILOL 12.5 MG TAB PO SCH (21:00)
== END 2017-06-11 18:34 | disposition home or self-care (01) ==
LOC: NEPC 19:24 → NEDA 22:10 → NEPFCDU 23:27 → NEDA 23:27 → NEPFCDU 06-11 01:45 → NEDA 06-11 01:45
PROVIDERS: ADMIT Internal Medicine Interventional Cardiology; ATTEND Internal Medicine Interventional Cardiology
DX: R07.89 Other chest pain (principal); R68.84 Jaw pain; R07.2 Precordial pain; R06.02 Shortness of breath; R51 Headache; I10 Essential (primary) hypertension; E78.5 Hyperlipidemia, unspecified; E78.00 Pure hypercholesterolemia, unspecified; E11.9 Type 2 diabetes mellitus without complications; J45.909 Unspecified asthma, uncomplicated; I20.9 Angina pectoris, unspecified; E88.81 Metabolic syndrome and other insulin resistance; I49.8 Other specified cardiac arrhythmias; K21.9 Gastro-esophageal reflux disease without esophagitis; E66.9 Obesity, unspecified; Z87.891 Personal history of nicotine dependence; Z79.899 Other long term (current) drug therapy; Z79.84 Long term (current) use of oral hypoglycemic drugs
CPT/HCPCS: 71020; 78452; 80053; 82550; 84484; 85025; 93005; 93017; 96361; 96372; 96374; 96375; 99285; A9502; C9113; G0378; J1885; J2785; J7040

== ENCOUNTER 2017-06-13 11:02 | Emergency (ER) | payer BC ==
[~2017-06-13] VITALS: Ht 165.1 cm; Wt 95.0 kg
[~2017-06-13 11:02] MED LIST changes: -BACT800T5 PO; +CARV12.52 PO; +CHOL1CAP2 PO; +DULA10IN SQ; +EDAR80TA PO; +FLUT1SPR5 EACH NARE; +LORA1CHW2 CHEW; +METF1000 PO; -METO100T PO; +ROSU20 PO
[2017-06-13 11:06] VITALS: BP 129/71; PULSE 80; RESP 16; O2SAT 96
[2017-06-13 11:25] LABS: BLOOD, URINE LARGE (NEG); GLUCOSE,URINE NEG (NEG); KETONE, URINE NEG (NEG); NITRITE,URINE NEG (NEG); PH, URINE 5.5 (5.0-8.5)
[2017-06-13 11:26] LABS: METHOD OF COLLECTION CLEAN CATCH; URINE COLOR YELLOW (YELLW/STRAW)
[2017-06-13 11:36] LABS: COMMENT (UR) CULT NOT INDICATED; CULTURE IF INDICATED CULT NOT INDICATED; SQUAMOUS EPITHELIAL CELL URINE 0-5 /hpf (0-5); WBC, URINE 0-2 /hpf (0-5)
--- NOTE | 2017-06-13 11:36 | PD ---
HPI Chief Complaint: Flank/Kidney Pain Time Seen by Provider: 11:25 Travel History International Travel<30 days: No Contact w/Intl Traveler<30days: No Traveled to known affect area: No History of Present Illness HPI The patient was seen and examined in the presence of the nurse. This patient complains of right sided low back pain. Started yesterday. No injury. It's worse when she pushes on her right lumbar muscle. No sciatic radiation. No neurologic deficit or complaint. She was admitted 2 days ago for overnight chest pain evaluation and her chest pain has resolved. PFSH Past Medical History Asthma: Yes Heart Rhythm Problems: No Cardiac Catheterization: No Cardiovascular Problems: No High Cholesterol: Yes Congestive Heart Failure: No Diabetes: Yes Patient Takes Glucophage: Yes Diminished Hearing: No Hypertension: Yes Medical other: Yes (TUBAL) Reproductive: Yes (MISCARRIAGES/ENDOMETRIOSIS/UTERINE ) Tetanus Vaccination: < 5 Years Influenza Vaccination: Yes ?: Not LMP: JAMIR/IRREG : 4 Miscarriage: 3 Ectopic : Yes Past Surgical History Abdominal Surgery: Yes Appendectomy: Yes Section: Yes Cholecystectomy: Yes Coronary Artery Bypass Graft: No Gynecologic Surgery: Yes (SEPTUM FROM UTERUS REMOVED 03/2008 ENDOMETRIOSIS X4 LAST SURGERY 2005) Other Surgery: Yes (LUMPECTOMY 1997, LEFT BREAST BIOPSY, CERVICAL BIOPSY) Social History Alcohol Use: No Tobacco Use: No (QUIT ) Substance Use: No Allergies-Medications (Allergen,Severity, Reaction): Coded Allergies: levofloxacin (Unverified Allergy, Severe, SWELLING, 06/13/17) metronidazole (Unverified Allergy, Severe, MEMORY LOSS, 06/13/17) penicillin G (Unverified Allergy, Severe, SWELLING, 06/13/17) prochlorperazine (Unverified Allergy, Severe, VISION LOSS, 06/13/17) Reported Meds & Prescriptions Reported Meds & Active Scripts Active Zofran (Ondansetron HCl) 4 Mg Tab 4 Mg PO Q6HR PRN Tramadol (Tramadol HCl) 50 Mg Tab 50 Mg PO Q6H PRN Reported Flonase Nasal [place] (Fluticasone Nasal [place]) 50 Mcg/Act [place] 50 Mcg EACH NARE BID Claritin (Loratadine) 5 Mg Chew 5 Mg CHEW DAILY Trulicity Inj (Dulaglutide Inj) 0.75 Mg/0.5 Ml Pen 0.75 Mg SQ Q7D Edarbi (Azilsartan) 80 Mg Tab 80 Mg PO DAILY Fenofibric Acid Dr (Choline Fenofibrate DR) 135 mg Capdr 135 Mg PO DAILY Carvedilol 12.5 Mg Tab 12.5 Mg PO BID Metformin (Metformin HCl) 1,000 Mg Tab 1,000 Mg PO BIDPC Crestor (Rosuvastatin Calcium) 20 Mg Tab 20 Mg PO DAILY Omeprazole 20 Mg Tab 20 Mg PO DAILY Review of Systems General / Constitutional: No: Fever HENT: No: Headaches Cardiovascular: No: Chest Pain or Discomfort Physical Exam Narrative GASTROINTESTINAL: Abdomen soft, non-tender, nondistended. Positive bowel sounds. No hepato-splenomegaly, or palpable masses. No guarding. RESPIRATORY: Respiratory effort unlabored, no retractions or use of accessory muscles. Breath sounds are clear and symmetric. SKIN: Focused skin assessment reveals no rash or ulcers. Skin is warm and dry. Palpation shows no induration or nodules. NEUROLOGICAL: Awake and alert. Pupils are equal round and reactive. Motor and sensory grossly within normal limits. Five out of 5 muscle strength in all muscle groups. Normal speech. Back: No midline tenderness. There is some right lumbar muscular tenderness Data Data Last Documented VS Vital Signs Date Time Temp Pulse Resp B/P (MAP) Pulse Ox O2 Delivery O2 Flow Rate FiO2 06/13/17 11:06 80 16 129/71 (90) 96 Orders Orders Urinalysis - C+S If Indicated (06/13/17 11:09) Promethazine Inj (Phenergan Inj) (06/13/17 11:45) Ketorolac Inj (Toradol Inj) (06/13/17 11:45) Labs Laboratory Tests Test 06/13/17 11:15 Urine Collection Type CLEAN CATCH Urine Color YELLOW Urine Turbidity CLEAR Urine pH 5.5 Urine Specific [place] 1.010 Urine Protein NEG mg/dL Urine Glucose (UA) NEG mg/dL Urine Ketones NEG mg/dL Urine Occult Blood LARGE Urine Nitrite NEG Urine Bilirubin NEG Urine Leukocyte Esterase NEG Urine RBC 20-24 /hpf Urine WBC 0-2 /hpf Urine Squamous Epithelial Cells 0-5 /hpf Microscopic Urinalysis Comment CULT NOT INDICATED MDM Medical Decision Making Medical Screen Exam Complete: Yes Emergency Medical Condition: Yes Medical Record Reviewed: Yes Differential Diagnosis Lumbar strain, sciatica, pyelonephritis, kidney stone Narrative Course I have reviewed the patient's electronic medical record. Reviewed her admission history and physical from a couple days ago Urinalysis is negative for infection. There is minor amount of red cells but the patient is having vaginal spotting Presentation not consistent with kidney stone. She has reproducible muscular tenderness. Neurologically intact and no red flags for emergent imaging Seems most consistent with musculoskeletal lumbar pain. I gave her injection of Toradol and Phenergan. Prescriptions written for symptom relief She should return if she worsens otherwise follow-up with primary care We discussed CT imaging to look for kidney stone or other problem but at this point I don't think it would global director air and climate change Of note, I did note her allergy list but the patient has had Phenergan before and did fine with that. Diagnosis Primary Impression: Low back pain Qualified Codes: M54.5 - Low back pain Additional Instructions: The patient was warned about potential sedation for the medications they will receive on prescription. The patient was advised to follow up with their physician and return if they worsen. Med/Other Pt SpecificInfo: Prescription(s) given Scripts Ondansetron (Zofran) 4 Mg Tab 4 MG PO Q6HR Y for NAUSEA OR VOMITING, #15 TAB 0 Refills Prov: Luis Oneal MD 06/13/17 Tramadol (Tramadol) 50 Mg Tab 50 MG PO Q6H Y for PAIN, #20 TAB 0 Refills Prov: Luis Oneal MD 06/13/17 Disposition: 01 DISCHARGE HOME Condition: Stable Luis Oneal MD Jun 13, 2017 11:36
[2017-06-13] MEDS ORDERED: KETOROLAC TROMETHAMINE 60 MG/2 ML (IM) VIAL IM ONE (11:45)
[2017-06-13] MEDS ORDERED: PROMETHAZINE INJ 25 MG/ML VIAL IM ONE (11:45)
[2017-06-13] MEDS ORDERED: ZOFR4TAB PO (11:57)
[2017-06-13] MEDS ORDERED: TRAM50TA PO (11:57)
== END 2017-06-13 12:21 | disposition home or self-care (01) ==
LOC: PHED 11:02
DX: M54.5 Low back pain (principal); I10 Essential (primary) hypertension; E78.00 Pure hypercholesterolemia, unspecified; E11.8 Type 2 diabetes mellitus with unspecified complications; J45.909 Unspecified asthma, uncomplicated; Z79.84 Long term (current) use of oral hypoglycemic drugs; Z79.899 Other long term (current) drug therapy
CPT/HCPCS: 81001; 96372; 99284; J1885; J2550